=== PATIENT | male | born 1970 | race Caucasian/White ===

== ENCOUNTER → 2023-08-31 08:25 | Outpatient (REF) | payer OTHER, SELFPAY | LOC: HWRAD 08:25 | PROVIDERS: ATTENDING PHYSICIAN Internal Medicine Transplant Hepatology; FAMILY PHYSICIAN Physician Assistant Medical | DX: K75.81 Nonalcoholic steatohepatitis (NASH) (principal) | CPT/HCPCS: 76700 ==

== ENCOUNTER → 2024-01-18 09:37 | Outpatient (REF) | payer OTHER, SELFPAY | LOC: HWRAD 09:37 | PROVIDERS: ATTENDING PHYSICIAN Urology; FAMILY PHYSICIAN Physician Assistant Medical | DX: N20.0 Calculus of kidney (principal) | CPT/HCPCS: 76775 ==

== ENCOUNTER → 2024-01-27 06:20 | Day surgery (SDC) | payer OTHER, SELFPAY ==
[2024-01-27 07:45] LABS: Glucose - Point of Care 113 mg/dl (70-99)
== END ==
LOC: GI 06:20
PROVIDERS: ATTENDING PHYSICIAN Internal Medicine Gastroenterology
DX: Z12.11 Encounter for screening for malignant neoplasm of colon (principal); Z86.010 Personal history of colon polyps; K62.1 Rectal polyp; K63.5 Polyp of colon; K64.8 Other hemorrhoids
CPT/HCPCS: 45380; 88305; 82962

== ENCOUNTER 2025-01-03 11:02 | Emergency (ER) | payer OTHER, SELFPAY ==
[2025-01-03 11:04] VITALS: BP 141/77
[2025-01-03 11:29] LABS: % Basophils 0.4 % (0-2); % Eosinophils 1.2 % (0-6); % Immature Granulocytes 0.4 % (0-0.5); % Lymphocytes 6.2 % (20.5-51.1); % Monocytes 6.8 % (1.7-9.3); Absolute Basophils 0.1 10^3/uL (0-0.2); Absolute Eosinophils 0.2 10^3/uL (0-0.7); Absolute Immature Granulocytes 0.1 10^3/uL (0-0.05); Absolute Lymphocytes 0.8 10^3/uL (1.2-3.4); Absolute Monocytes 0.9 10^3/uL (0.1-0.6); Absolute Neutrophils 10.7 10^3/uL (1.4-6.5); Hematocrit 39.8 % (39.0-52.0); Hemoglobin 13.6 g/dL (13.0-18.0); Mean Corp Hgb Conc. 34.2 g/dL (33.0-37.0); Mean Corpuscular Hgb 28.3 pg (27.0-31.0); Mean Corpuscular Volume 82.9 fL (80.0-94.0); Mean Platelet Volume 10.3 fL (7.4-10.4); Nucleated Red Blood Cells % 0 % (-); Platelet Count 209 10^3/uL (130-400); Red Cell Dist. Width 13.3 % (11.5-14.5); White Blood Cell Count 12.6 10^3/uL (4.8-10.8)
[2025-01-03 11:50] LABS: ALT (SGPT) 24 U/L (0-50); AST (SGOT) 26 U/L (17-59); Albumin 4.3 g/dl (3.5-5.0); Alkaline Phosphatase 52 U/L (38-126); Blood Urea Nitrogen 12 mg/dl (9-20); Calcium 9.3 mg/dl (8.4-10.2); Carbon Dioxide 26 mmol/L (22-30); Chloride 102 mmol/L (98-107); Glucose 204 mg/dl (70-99); Lipase 121 U/L (23-300); Potassium 3.8 mmol/L (3.5-5.1); Sodium 139 mmol/L (135-145); Total Bilirubin 0.8 mg/dl (0.2-1.3); Total Protein 7.1 g/dl (6.3-8.2); eGFR > 60.00
[2025-01-03 12:28] VITALS: BMI 39.6
[2025-01-03 12:41] VITALS: BP 131/76
--- NOTE | 2025-01-03 12:49 | ED.GENMED ---
History of Present Illness
General
Chief Complaint: Abdominal Pain
Source: patient
Exam Limitations: none
Time Seen by Provider: 01/03/25 12:46
Nursing documentation reviewed up to this point in time: agreed with
History of Present Illness
History of Present Illness:
Patient is a 54-year-old male with history hypertension, diabetes who presents the emergency department for evaluation of history of recent fever and abdominal pain. Patient states that last week he noticed intermittent lower abdominal discomfort
and mild constipation. Abdominal pain has since resolved however yesterday he felt that he had some yellowing of his skin (which he believes has improved today). He also reports fever at home last night around 100 �101F.
He does note sore throat, which also started yesterday, and nonproductive cough.
Patient denies any headache, neck pain, chest pain, or shortness of breath. He denies any difficulty swallowing or breathing. Patient denies any current abdominal pain or diarrhea. No vomiting. No dysuria.
No known sick contacts
Past History
Past History
ED Past Medical History: HTN, NIDDM, Other (kidney stones) and Other (sleep apnea)
ED Past Surgical History: None
Social History
Tobacco: Non-smoker
Living: with family
Review of Systems
Review of Systems
Allergies reviewed?: Yes
All Other Systems: ROS reviewed and negative except as documented in HPI and ROS
Phy Exam
Physical Exam
Physical Exam:
Vitals: Patient's vital signs are stable. Afebrile.
General: Patient is well appearing, no acute distress. Nontoxic appearing.
Skin: Warm and dry, no rashes or lesions. No jaundice
Head: Normocephalic, atraumatic
Eyes: Sclera nonicteric. EOMs intact. No nystagmus.
Throat: Pharyngeal erythema. No tonsillar edema or exudates. Uvula midline. No DIRECTOR OF FIRST IMPRESSIONS. Protecting airway
Neck: Normal ROM, no cervical spine tenderness, no meningismus
Cardiac: Regular rate and rhythm, no murmurs.
Pulm: Normal respiratory effort, no wheezes, rales, rhonchi heard on exam
.
Abdomen: Very mild epigastric tenderness. No rebound tenderness or guarding. Negative richey sign. No focal tenderness at McBurneys point.
Extremities: No evidence of cyanosis or edema
Neuro: AAOx3. Grossly intact.
Psychiatric: Normal affect.
Course
Orders/Labs/Results
Orders:
Orders
01/03/25 11:18
Complete Blood Count/With Diff Urgent
Comprehensive Metabolic Panel Urgent
Direct Bilirubin Urgent
Comment: ADD ON
Lipase Urgent
Monotest Urgent
Comment: ADD ON
01/03/25 13:17
Add On- LAB Urgent
Tests Added?: direct bilirubin, monospot
0.9% Sodium Chloride 1000 ml [Nss] 1,000 ml IV BOLUS
US Abdomen Complete/Upper Urgent
Comment:
Reason For Exam: Abdominal pain, jaundice
01/03/25 13:37
COVID-19 Antigen Urgent
Source: Nasal Swab
Urinalysis Reflex To Culture Urgent
Date Specimen was Collected: 01/03/25
Time Specimen was Collected: 13:23
Influenza A+B Rapid Molecular Urgent
BESS Source: Nasal Swab
Specimen Description:
Rapid Strep Group A Urgent
BESS Source: Throat/Pharynx
Specimen Description:
Date Specimen was Collected: 01/03/25
Time Specimen was Collected: 13:23
Throat Culture [Throat Culture, Comprehensive] Urgent
BESS Source: Throat/Pharynx
Specimen Description:
Date Specimen was Collected: 01/03/25
Time Specimen was Collected: 13:23
01/03/25 16:15
Ketorolac [Toradol] 15 mg IV NOW STA
Abnormal Lab Results
01/03/25 01/03/25
11:18 13:37
WBC 12.6 H 10^3/uL
(4.8-10.8)
Abs Immat Gran (auto) 0.1 H 10^3/uL
(0-0.05)
Absolute Neuts (auto) 10.7 H 10^3/uL
(1.4-6.5)
Absolute Lymphs (auto) 0.8 L 10^3/uL
(1.2-3.4)
Absolute Monos (auto) 0.9 H 10^3/uL
(0.1-0.6)
Neutrophils % 85.0 H %
(42.2-75.2)
Lymphocytes % 6.2 L %
(20.5-51.1)
Glucose 204 H mg/dl
(70-99)
Urine Glucose 3+ A
(Negative)
01/03/25 11:18
01/03/25 11:18
Vital Signs
Initial and Last Documented VS:
Initial Vital Signs
Temp Pulse Resp BP Pulse Ox
98.4 F 66 16 141/77 100
01/03/25 11:04 01/03/25 11:04 01/03/25 11:04 01/03/25 11:04 01/03/25 11:04
Last Documented Vital Signs
Temp Pulse Resp BP Pulse Ox
98.4 F 79 16 122/56 99
01/03/25 11:04 01/03/25 12:41 01/03/25 12:41 01/03/25 16:23 01/03/25 16:23
MDM/Problems Addressed
Differential Diagnosis Includes:
Not limited to:viral illness, biliary colic, acute cholecystitis, constipation, UTI, etc
MDM/Problems Addressed:
60-year-old male presenting with viral URI symptoms, as well as history of abdominal pain and jaundice that has resolved. Patient afebrile on arrival with stable vital signs. On exam, Patient appears well and nontoxic. He has no neck stiffness or
meningeal signs. Mild pharyngeal erythema although no evidence of DIRECTOR OF FIRST IMPRESSIONS on exam. Cardio/pulmonary exam unremarkable. Abdomen benign with very mild epigastric tenderness. He has no jaundice or scleral icterus exam. He is neurologically intact.
Basic labs sent in triage. Mild leukocytosis. No LFT abnormalities or hyperbilirubinemia noted.
Differential broad. Given fever and sore throat � will check viral swabs. Will obtain abdominal ultrasound, UA. Will give IV fluid. Patient declines analgesia at this time.
Update: UA with no evidence of RBCs or signs of infection. Viral swabs negative, including Covid, influenza, and mono test. Rapid strep negative. Ultrasound without evidence of acute cholecystitis or biliary tract dilatation.
Patient remains well appearing and in no distress. He did develop low-grade temp while an ED. Overall � feel symptoms consistent with viral illness, given pharyngitis, low-grade fever, and cough. Very low suspicion for acute intra-abdominal
infection or obstructive process given patient afebrile with benign abdominal exam. Will give dose of IV Toradol for pharyngitis. Feel stable for discharge with primary care follow up and very strict return precautions. Case discussed with the
attending physician.
Chronic conditions affecting care:
N/A
Acute Exacerbation and/or Progression of Chronic Illness:
N/A
*Radiology
Radiology exam reviewed: radiology read reviewed
*Pulse Oximetry
Patient hypoxic: no
*EKG
Interpreted by ED Provider?: NA
*Patient Registration Representative Interpretation
Rate: Patient Registration Representative- N/A
*Critical Care Note
Total Time (30-74mins, 75-104mins- exclusive of procedures): Not Applicable
Patient Management
Escalation/DeEscalation of care consider admission/obs:
Admit not indicated
ED Attending Note
-
Portions of this chart may have been created with voice recognition software.� Occasional wrong word or��sound alike� substitutions may have occurred due to the inherent limitations of voice recognition software.
Discharge Plan
Departure
Patient Disposition: Home (Routine Discharge)
Date of Disposition: 01/03/25
Time of Disposition: 16:18
Patient with high blood pressure during this ER visit?: No
Condition: Good
Covid-19: Negative COVID-19
Discharge Problem:
Acute viral pharyngitis
Instructions: Sore throat in adults - ED discharge instructions, Abdominal Pain
Prescriptions:
No Action
Atenolol
100 mg PO QPM
Patient Comments:
dose unknown
ibuprofen 800 MG tablet
1 tab PO Q6HPRN PRN (Reason: headache)
citalopram 20 MG tablet
40 mg PO DAILY
lisinopril 5 MG tablet
5 mg PO DAILY
fluticasone propionate 16 GRAM spray,suspension
2 spray intranasal DAILY
Clarinex
20 mg PO Daily
OMEGA-3
4 cap PO DAILY
sumatriptan succinate [Imitrex] 100 MG tablet
100 mg PO BIDPRN PRN (Reason: Headaches)
metformin [Glucophage XR] 500 MG tablet extended release 24 hr
500 mg PO BID
naproxen 500 MG tablet
500 mg PO BID PRN (Reason: Headaches)
rosuvastatin 10 MG tablet
5 mg PO QPM
eszopiclone [Lunesta] 3 mg Tablet
3 mg PO HS
potassium citrate 15 mEq Tablet Extended Release
30 meq PO DAILY
Mounjaro 7.5 mg/0.5 mL Pen Injector
7.5 mg SC SA
Referrals:
Dilma Ayala PA-C [Family Provider, Family Practice] - Follow up in 2-3 days
Activity Restrictions/Additional Instructions:
RETURN TO THE EMERGENCY DEPARTMENT FOR ANY PERSISTENT FEVERS/CHILLS, ABDOMINAL PAIN, INTRACTABLE NAUSEA/VOMITING OR DIARRHEA, SEVERE BACK PAIN, PRODUCTIVE COUGH, DIFFICULTY SWALLOWING, YELLOWING OF SKIN, WORSENING IN CURRENT SYMPTOMS, OR ANY OTHER
CONCERNS
- As discussed�your abdominal ultrasound showed no acute abnormalities. You were negative for COVID, influenza, and mono. You were given a liter of IV fluids and IV Toradol.
- I suspect some of your symptoms are likely secondary to a viral syndrome. You can take Tylenol and/or Motrin as needed for pain. It is important stay very well-hydrated.
- Follow-up with your primary care in a few days to ensure that symptoms are improving/for further evaluation
Monitor your symptoms closely and return to the emergency department with any acute worsening/new symptoms or any other concerns
Interventions
Interventions:
*Risk Screen - Suicide Last Done: 01/03/25 11:04
*General Assessment Last Done: 01/03/25 11:04
*Neglect/Abuse Screening Last Done: 01/03/25 12:29
*ED- Fall Risk Assessment Last Done: 01/03/25 12:28
*ED COVID-19 Vaccine History Last Done: 01/03/25 12:28
*Nursing Disposition Last Done: 01/03/25 17:14
QC-Yurveo-Lxlothzedh Assessment Last Done: 01/03/25 13:59
Discharge Date and Time
Discharge Date/Time: 01/03/25 17:14
Print Language: JORDANIAN
[2025-01-03 13:12] VITALS: BP 112/57
[2025-01-03] MEDS: NSS 1000 IV (13:36)
[2025-01-03 14:06] LABS: Urine Albumin Negative (Neg - Trace); Urine Bilirubin Negative (Negative); Urine Character Clear (Clear); Urine Color Yellow; Urine Glucose 3+ (Negative); Urine Ketone Negative (Negative); Urine Leukocyte Negative (Negative); Urine Nitrite Negative (Negative); Urine Occult Blood Negative (Negative); Urine Urobilinogen Negative (Neg - 1+)
[2025-01-03 14:17] LABS: COVID-19 Antigen Negative (Negative)
[2025-01-03 14:23] LABS: Direct Bilirubin 0.2 mg/dl (0.0-0.4)
[2025-01-03 15:49] LABS: Monotest Negative (Negative)
[2025-01-03] MEDS: TORADOL 15 MG IV (16:22)
[2025-01-03 16:23] VITALS: BP 122/56
== END 2025-01-03 17:14 | disposition home or self-care (01) ==
LOC: EMR 11:02
PROVIDERS: Emergency Medicine; Physician Assistant; EMERGENCY PHYSICIAN Emergency Medicine; FAMILY PHYSICIAN Physician Assistant Medical
DX: J02.8 Acute pharyngitis due to other specified organisms (principal); B97.89 Other viral agents as the cause of diseases classified elsewhere; Z11.52 Encounter for screening for COVID-19; I10 Essential (primary) hypertension; E11.9 Type 2 diabetes mellitus without complications
CPT/HCPCS: 99284; 96374; 96361; 76700; 80053; 81003; 82248; 83690; 85025; 86308; 87070; 87502; 87811; 87880

== ENCOUNTER → 2025-01-17 12:37 | Outpatient (REF) | payer OTHER, SELFPAY | LOC: HWRAD 12:37 | PROVIDERS: ATTENDING PHYSICIAN Urology; FAMILY PHYSICIAN Physician Assistant Medical | DX: N20.0 Calculus of kidney (principal) | CPT/HCPCS: 76775 ==